=== PATIENT | female | born 2000 | race African-American/Black ===

== ENCOUNTER 2021-06-18 10:25 | Emergency (ER) | payer BC ==
[2021-06-18 12:48] LABS: SARS-CoV-2 NAA Rapid Test Not Detected (NotDetected)
== END 2021-06-18 11:28 | disposition home or self-care (01) ==
LOC: ERS 10:25
DX: R50.9 Fever, unspecified (principal); R05 Cough; Z20.822 Contact with and (suspected) exposure to COVID-19
CPT/HCPCS: 0240U; 99283